=== PATIENT | female | born 1995 | race African-American/Black ===

== ENCOUNTER 2023-10-23 08:18 | Emergency (ER) | payer OTHER ==
[~2023-10-23] VITALS: Ht 162.6 cm; Wt 59.0 kg
[~2023-10-23 08:18] MED LIST: NO TOMA MEDICAMENTOS
[2023-10-23 10:09] LABS: URINE APPEARANCE Clear; URINE BILIRRUBIN Negative (NEGATIVE); URINE BLOOD Negative; URINE COLOR Yellow; URINE GLUCOSE Negative (NEGATIVE); URINE LEUKOCYTE Trace; URINE NITRATE Negative; URINE PROTEIN Negative (NEGATIVE); URINE UROBILINOGEN 0.2 E.U./dl
[2023-10-23 10:12] LABS: HEMATOCRIT 38.1 % (36.0-45.00); HEMOGLOBIN 12.8 g/dL (12.0-15.00); MEAN CELL VOLUME 90.5 fL (80.00-100.00); MEAN CORPUSCULAR HEMOGLOBIN 30.5 pg (27.00-32.0); MEAN CORPUSCULAR HGB CONC 33.6 g/dl (32.0-36.0); PLATELET COUNT 326 K/uL (150-450); RED BLOOD COUNT 4.21 M/uL (4.00-6.00); RED CELL DISTRIBUTION WIDTH 14.1 % (11.5-14.5)
[2023-10-23 10:14] LABS: URINE BACTERIA 26.4 uL (0.0-1933); URINE EPITHELIAL CELLS 8.9 uL (0.0-38.8); URINE RBC 8.9 uL (0.0-20.8); URINE WBC 6.9 uL (0.0-23.2)
== END 2023-10-23 10:58 | disposition home or self-care (01) ==
LOC: ER 08:18
PROVIDERS: General Practice
DX: R30.0 Dysuria (principal)

== ENCOUNTER 2023-11-19 11:24 | Emergency (ER) | payer OTHER ==
[~2023-11-19] VITALS: Ht 340.4 cm; Wt 56.7 kg
[2023-11-19 17:34] LABS: HEMATOCRIT 40.9 % (36.0-45.00); HEMOGLOBIN 13.9 g/dL (12.0-15.00); MEAN CELL VOLUME 91.6 fL (80.00-100.00); MEAN CORPUSCULAR HGB CONC 33.9 g/dl (32.0-36.0); PLATELET COUNT 387 K/uL (150-450); RED BLOOD COUNT 4.47 M/uL (4.00-6.00)
[2023-11-19 17:49] LABS: URINE APPEARANCE Clear; URINE BILIRRUBIN Negative (NEGATIVE); URINE BLOOD Negative; URINE COLOR Yellow; URINE GLUCOSE Negative (NEGATIVE); URINE LEUKOCYTE Negative; URINE NITRATE Negative; URINE PROTEIN Negative (NEGATIVE); URINE UROBILINOGEN 0.2 E.U./dl
[2023-11-19 17:52] LABS: URINE BACTERIA 11.3 uL (0.0-1933); URINE EPITHELIAL CELLS 3.2 uL (0.0-38.8); URINE RBC 5.5 uL (0.0-20.8)
[2023-11-19 17:53] LABS: URINE WBC 1.5 uL (0.0-23.2)
[2023-11-19 17:57] LABS: CALCIUM 9.2 mg/dL (8.5-10.1); CREATININE SERUM 0.67 mg/dL (0.55-1.02); GFR 106.39; POTASSIUM 3.45 mEq/L (3.5-5.1)
== END 2023-11-19 18:28 | disposition home or self-care (01) ==
LOC: ER 11:25
PROVIDERS: General Practice
DX: M54.9 Dorsalgia, unspecified (principal); N39.0 Urinary tract infection, site not specified

== ENCOUNTER 2024-12-30 12:12 | Emergency (ER) | payer OTHER ==
[~2024-12-30] VITALS: Ht 172.7 cm; Wt 60.8 kg
[2024-12-30] MEDS ORDERED: TOPROL XL25 M1 PO (12:41)
[2024-12-30] MEDS ORDERED: ONDANSETRON HCL 2 MG/ML VIAL IV ONE (14:00)
[2024-12-30] MEDS ORDERED: FAMOTIDINE/PF 20 MG/2 ML VIAL IV PUSH ONE (14:00)
[2024-12-30] MEDS ORDERED: 0.9 % SODIUM CHLORIDE 1,000 ML IV STA (14:08)
[2024-12-30] MEDS ORDERED: FAMOTIDINE/PF 20 MG/2 ML VIAL ONE ×2 (14:08→14:11)
[2024-12-30] MEDS ORDERED: ONDANSETRON HCL 2 MG/ML VIAL ONE ×2 (14:08→14:11)
[2024-12-30 14:40] LABS: HEMATOCRIT 40.4 % (36.0-45.00); HEMOGLOBIN 13.7 g/dL (12.0-15.00); MEAN CELL VOLUME 91.5 fL (80.00-100.00); MEAN CORPUSCULAR HGB CONC 33.9 g/dl (32.0-36.0); PLATELET COUNT 315 K/uL (150-450); RED BLOOD COUNT 4.41 M/uL (4.00-6.00); RED CELL DISTRIBUTION WIDTH 13.5 % (11.5-14.5)
[2024-12-30 15:08] LABS: ALBUMIN 3.8 gm/dL (3.4-5.0); BILIRUBIN TOTAL 0.43 mg/dL (0.3-1.2); CALCIUM 8.4 mg/dL (8.5-10.1); CREATININE SERUM 0.7 mg/dL (0.55-1.02); GFR 100.38; GLOBULINA 4.6 G/DL (2.4-3.5); POTASSIUM 3.53 mEq/L (3.5-5.1); TOTAL PROTEIN 8.4 gm/dL (6.4-8.2)
[2024-12-30 15:59] LABS: URINE APPEARANCE Clear; URINE BILIRRUBIN Negative (NEGATIVE); URINE BLOOD Negative; URINE COLOR Yellow; URINE GLUCOSE Negative (NEGATIVE); URINE LEUKOCYTE Negative; URINE NITRATE Negative; URINE PROTEIN 30 (NEGATIVE)
[2024-12-30 16:03] LABS: URINE BACTERIA 1026.8 uL (0.0-1933); URINE EPITHELIAL CELLS 55.4 uL (0.0-38.8); URINE RBC 116.5 uL (0.0-20.8)
[2024-12-30 16:28] LABS: URINE CAST 0.73 uL (0.0-1.40); URINE KETONE 40 (NEGATIVE)
[2024-12-30 16:29] LABS: URINE MUCUS MODERATE
== END 2024-12-30 20:51 | disposition home or self-care (01) ==
LOC: ER 12:14
PROVIDERS: Emergency Medicine
DX: K52.89 Other specified noninfective gastroenteritis and colitis (principal)